=== PATIENT | female | born 1945 | race African-American/Black ===

== ENCOUNTER → 2019-12-31 | Outpatient (CLI) | payer MEDICARE ==
--- NOTE | 2019-12-31 17:28 | RAD ---
EXAM: PET W CT SKULL TO MIDTHIGH EXAM DATE: 12/31/2019 INDICATION: Breast cancer. Subsequent treatment strategy. RADIOPHARMACEUTICAL: 14.9 mCi of F-18 Fluorodeoxyglucose (FDG) I.V. via the left antecubital fossa. TECHNIQUE: Patient weight: 210 pounds. Following at least four-hour fasting, the patient's blood glucose was 87 mg/dl. Approximately 1 hour after administration of FDG, overlapping emission scanning was performed from the orbital meatal line through the pelvis. A low-dose CT was performed for attenuation correction purposes and anatomic localization. Fused images of PET and CT were reviewed. Any standardized uptake values (SUV) reported are maximum values within a volume region of interest, expressed in gm/ml. COMPARISON: Chest CT with IV contrast of July 29, 2018 FINDINGS: PET: A 7 mm posterior right upper lobe pulmonary nodule (image 84 of 290 on axial series 3) shows FDG uptake to max SUV of 4.12. There is faint right hilar FDG uptake to max SUV of 3.59. A fluid collection in the right breast measuring 4.5 x 4.4 cm and containing a fat fluid level shows no abnormal FDG activity. No abnormal FDG activity in the axillary lymph nodes or the mediastinal or left hilar nodes. CT: In the head and neck, no abnormal masses or lymph nodes are seen. Right breast postlumpectomy and axillary eric sampling surgical changes are present in the chest. Mediastinum shows multiple hypodense nodules in the thyroid gland less than a centimeter in size. Lungs show in addition to the hypermetabolic 7 mm nodule in the posterior right upper lobe also show peripheral and posterior right upper lobe small pulmonary nodule measuring 4 mm abutting the major fissure (axial image 90 of 290 on series 3). Although there is respiratory motion artifact that degrades detail, no developing nodule mass is apparent. There is no pleural effusion. In the abdomen and pelvis, gallbladder surgically absent. Liver is fatty infiltrated and mildly enlarged. There are abdominal aortic calcifications without aneurysmal dilation. The uterus is absent. No adnexal mass. No pelvic free fluid, fluid collection or adenopathy. Bones show no acute or aggressive appearing osseous lesions. IMPRESSION: 1. Stable postsurgical chest findings in the right breast and axilla with a single hypermetabolic 7 mm pulmonary nodule in the posterior right upper lobe, unchanged in size from 2018. Recommend attention on follow-up. 2. In addition, there is mild FDG activity in the right hilum without associated adenopathy on unenhanced CT. This could be inflammatory. 3. Otherwise no findings suspicious for metastatic disease are appreciated. Electronically signed by: Maryellen Lee MD (12/31/2019 5:25 PM) [facility]
== END | disposition home or self-care (01) ==
LOC: PETSC 09:40
PROVIDERS: ATTEND Internal Medicine Pulmonary Disease
DX: C50.919 Malignant neoplasm of unspecified site of unspecified female breast (principal); R91.8 Other nonspecific abnormal finding of lung field; K76.0 Fatty (change of) liver, not elsewhere classified; E04.2 Nontoxic multinodular goiter
CPT/HCPCS: 78815; A9552

== ENCOUNTER 2021-11-13 17:28 | Emergency (ER) | payer MEDICARE ==
[~2021-11-13] VITALS: Ht 170.2 cm; Wt 88.5 kg
[2021-11-13] MEDS ORDERED: ALBUTEROL SULFATE 2.5 MG/3 ML NEBU. NEB ONE (19:45)
[2021-11-13] MEDS ORDERED: methylPREDNISolone SOD SUCC PF 125 MG/2 ML VIAL. IV ONE (19:45)
[2021-11-13] MEDS ORDERED: IPRATRPIUM/ALBUTEROL 0.5/2.5MG 3 ML NEBU. NEB ONE (19:45)
[2021-11-13] MEDS ORDERED: ACETAMINOPHEN 500 MG TABLET PO ONE (19:45)
[2021-11-13 20:13] LABS: BASO # 0.1 x10^3/uL (0.0-0.2); BASO % 1 % (0-3); EOS # 0.2 x10^3/uL (0.0-0.7); EOS % 1 % (0-3); HEMATOCRIT 38.8 % (36.0-47.0); LYMPH # 4.4 x10^3/uL (1.0-4.8); LYMPH % 37 % (24-48); MEAN CORPUSCULAR HEMOGLOBIN 30 pg (25-35); MEAN CORPUSCULAR HGB CONC 33 g/dL (31-37); MEAN CORPUSCULAR VOLUME 89 fL (79-100); MONO # 1.1 x10^3/uL (0.0-1.1); MONO % 9 % (0-9); NEUT # 6.4 x10^3/uL (1.8-7.7); NEUT % 53 % (31-73); PLATELET COUNT 357 x10^3/uL (140-400); RED BLOOD COUNT 4.34 x10^6/uL (3.50-5.40); RED CELL DISTRIBUTION WIDTH 14.8 % (11.5-14.5); WHITE BLOOD COUNT 12.2 x10^3/uL (4.0-11.0)
[2021-11-13 20:39] LABS: CALCIUM 9.1 mg/dL (8.5-10.1); CREATININE 0.6 mg/dL (0.6-1.0); GFR 118.6
[2021-11-13 20:40] LABS: INFLUENZA A PATIENT NEGATIVE (NEGATIVE)
[2021-11-13 20:41] LABS: INFLUENZA B PATIENT POSITIVE (NEGATIVE)
[2021-11-13 20:45] LABS: ALBUMIN 3.1 g/dL (3.4-5.0); ALBUMIN/GLOBULIN RATIO 0.8 (1.0-1.7); TOTAL BILIRUBIN 0.3 mg/dL (0.2-1.0); TOTAL PROTEIN 7.2 g/dL (6.4-8.2)
[2021-11-13] MEDS ORDERED: IV NORMAL SALINE 1000ML BAG 1,000 ML IV ONE (21:30)
[2021-11-13] MEDS ORDERED: OSELTAMIVIR 75 MG CAPSULE PO ONE (21:30)
--- NOTE | 2021-11-13 21:47 | RAD ---
INDICATION: Reason: COVID-type symptoms / Spl. Instructions: / History: COMPARISON: March 31, 2018 FINDINGS: Single view of chest obtained. Cardiomediastinal silhouette is enlarged with calcific atherosclerosis. Disorganized pulmonary markings bilaterally. Mild patchy opacities at right greater than left lung base IMPRESSION: * Patchy opacities at right greater than left lung base which could be secondary to atelectasis or i nfiltrate. Follow-up could be obtained to ensure that this appropriately decreases to exclude a persi stent nodule in the area. Electronically signed by: Tereso Coyle MD (11/13/2021 9:45 PM) [id number]
[2021-11-13 22:34] VITALS: BP 163/71
[2021-11-13] MEDS ORDERED: OSEL75CA PO (22:53)
[2021-11-13] MEDS ORDERED: VENTOLIN HFA18 GM INH (22:53)
[2021-11-13] MEDS ORDERED: PRED50TA PO (22:53)
--- NOTE | 2021-11-13 22:53 | PHYS DOC ---
Past Medical History Past Surgical History: No Surgical History Smoking Status: Current Every Day Smoker Alcohol Use: None Adult General Chief Complaint Chief Complaint: FLU SYMPTOM HPI HPI The patient is a 75-year-old female with a history of hypertension, [id number]-nleocaacx diabetes, COPD not on home oxygen. She is not Covid vaccinated. She presents for evaluation of 2 to 3 days of shortness of breath in association with nasal congestion, rhinorrhea, dry cough, and body aches. No associated fevers, vomiting, decreased oral intake, chest pain of any kind, abdominal pain of any kind, flank pain, midline back pain, dysuria, hematuria, polyuria or oliguria, changes in bowel habits, pain or swelling to arms or legs. Patient is alert and pleasantly and appropriately interactive and in no acute distress with appropriate vital signs including oxygenation upon initial evaluation here in the emergency department. She has been taking Tylenol without complete relief of symptoms. She is audibly wheezing on initial auscultation. Review of Systems Review of Systems A 12 point review of systems was completed and was negative except where noted in HPI above. Current Medications Current Medications Current Medications Medications (Trade) Dose Ordered Sig/Ace Start Time Stop Time Status Last Admin Dose Admin Acetaminophen (Tylenol) 1,000 mg 1X ONCE 11/13/21 19:45 11/13/21 19:53 DC 11/13/21 20:06 1,000 MG Albuterol Sulfate (Ventolin Neb Soln) 2.5 mg 1X ONCE 11/13/21 19:45 11/13/21 19:53 DC 11/13/21 20:34 2.5 MG Albuterol/ Ipratropium (Duoneb) 3 ml 1X ONCE 11/13/21 19:45 11/13/21 19:53 DC 11/13/21 20:34 3 ML Methylprednisolone Sodium Succinate (SOLU-Medrol 125MG VIAL) 125 mg 1X ONCE 11/13/21 19:45 11/13/21 19:53 DC 11/13/21 20:08 125 MG Oseltamivir Phosphate (Tamiflu) 75 mg 1X ONCE 11/13/21 21:30 11/13/21 21:31 DC 11/13/21 21:34 75 MG Sodium Chloride 1,000 ml @ 1,000 mls/hr 1X ONCE 11/13/21 21:30 11/13/21 22:29 DC 11/13/21 21:28 1,000 MLS/HR Allergies Allergies Allergies Coded Allergies Type Severity Reaction Last Updated Verified No Known Drug Allergies 11/13/21 No Physical Exam Physical Exam 75-year-old female appearing nontoxic and in no acute distress. Head is normocephalic and atraumatic. Neck is supple and nontender. No JVD. Oropharynx is moist. Lungs with wheezes to all hassan but good air movement bilaterally. No crackles or other adventitious sounds. No tachypnea. Speaking comfortably in full sentences. There is a normal S1 and S2 without rubs or gallops and capillary refill is appropriate, less than 2 seconds globally. Abdo men is soft, nontender nondistended. Skin is warm and dry without cyanosis, clubbing or edema. Psychiatrically, the patient demonstrates appropriate mood and affect and is alert. Evaluation of the extremities reveals BUEs and BLEs neurovascularly intact distally with strength out of 5, sensation intact light touch in all nerve distributions, radial, DP and PT pulses 2+ equal bilaterally, capillary refill less than 2 seconds, hands and feet warm and well-perfused. No dependent peripheral edema distally. No calf tenderness or swelling bilaterally. Homans test is negative bilaterally. Current Patient Data Vital Signs Vital Signs Date Time Temp Pulse Resp B/P (MAP) Pulse Ox O2 Delivery O2 Flow Rate FiO2 11/13/21 22:34 98.0 97 18 163/71 (101) 94 Room Air 98.0 Lab Values Laboratory Tests Test 11/13/21 19:55 11/13/21 20:01 White Blood Count 12.2 x10^3/uL (4.0-11.0) H Red Blood Count 4.34 x10^6/uL (3.50-5.40) Hemoglobin 13.0 g/dL (12.0-15.5) Hematocrit 38.8 % (36.0-47.0) Mean Corpuscular Volume 89 fL (79-100) Mean Corpuscular Hemoglobin 30 pg (25-35) Mean Corpuscular Hemoglobin Concent 33 g/dL (31-37) Red Cell Distribution Width 14.8 % (11.5-14.5) H Platelet Count 357 x10^3/uL (140-400) Neutrophils (%) (Auto) 53 % (31-73) Lymphocytes (%) (Auto) 37 % (24-48) Monocytes (%) (Auto) 9 % (0-9) Eosinophils (%) (Auto) 1 % (0-3) Basophils (%) (Auto) 1 % (0-3) Neutrophils # (Auto) 6.4 x10^3/uL (1.8-7.7) Lymphocytes # (Auto) 4.4 x10^3/uL (1.0-4.8) Monocytes # (Auto) 1.1 x10^3/uL (0.0-1.1) Eosinophils # (Auto) 0.2 x10^3/uL (0.0-0.7) Basophils # (Auto) 0.1 x10^3/uL (0.0-0.2) Sodium Level 143 mmol/L (136-145) Potassium Level 4.0 mmol/L (3.5-5.1) Chloride Level 105 mmol/L (98-107) Carbon Dioxide Level 30 mmol/L (21-32) Anion Gap 8 (6-14) Blood Urea Nitrogen 6 mg/dL (7-20) L Creatinine 0.6 mg/dL (0.6-1.0) Estimated GFR (Cockcroft-Gault) 118.6 BUN/Creatinine Ratio 10 (6-20) Glucose Level 84 mg/dL (70-99) Calcium Level 9.1 mg/dL (8.5-10.1) Total Bilirubin 0.3 mg/dL (0.2-1.0) Aspartate Amino Transferase (AST) 10 U/L (15-37) L Alanine Aminotransferase (ALT) 12 U/L (14-59) L Alkaline Phosphatase 104 U/L (46-116) Troponin I High Sensitivity 9 ng/L (4-50) KP-Dxk-B-Type Natriuretic Peptide 161 pg/mL (0-124) H Total Protein 7.2 g/dL (6.4-8.2) Albumin 3.1 g/dL (3.4-5.0) L Albumin/Globulin Ratio 0.8 (1.0-1.7) L Influenza Type A Antigen Negative (NEGATIVE) Influenza Type B Antigen Positive (NEGATIVE) SARS-CoV-2 Antigen (Rapid) Negative (NEGATIVE) Laboratory Tests 11/13/21 19:55 Laboratory Tests 11/13/21 19:55 EKG EKG Sinus rhythm, rate 83, no acute ST elevation or depression, VT 178, QRS 100, QTc 429, EP interpretation. Nonischemic tracing, intervals appropriate. Radiology/Procedures Radiology/Procedures INDICATION: Reason: COVID-type symptoms / Spl. Instructions: / History: COMPARISON: March 31, 2018 FINDINGS: Single view of chest obtained. Cardiomediastinal silhouette is enlarged with calcific atherosclerosis. Disorganized pulmonary markings bilaterally. Mild patchy opacities at right greater than left lung base IMPRESSION: * Patchy opacities at right greater than left lung base which could be secondary to atelectasis or infiltrate. Follow-up could be obtained to ensure that this appropriately decreases to exclude a persistent nodule in the area. Electronically signed by: Kael Ellis MD (11/13/2021 9:45 PM) DESKTOP- [id number] DICTATED and SIGNED BY: KAEL ELLIS MD DATE: 11/13/21 [id number] 0 Course & Med Decision Making Course & Med Decision Making Labs and imaging largely nonacute aside from evidence of influenza B positivity on serology testing. Covid testing is negative. Patient feels much, much better after breathing treatments and steroids and some IV fluids here in the emergency department. She feels comfortable going home. She is ambulatory about the emergency department with a narrow, steady gait and a normal oxygen saturation. In view of reassuring work-up and clinical improvement will discharge home with a steroid burst, an inhaler and Tamiflu. Patient is to rest and hydrate and to follow-up closely with her primary doctor in the next 1 to 2 days. She understands that if she feels worse instead of better or develops other new symptoms of concern that she will need to return to the emergency department immediately for reevaluation. All questions were answered Dragon Disclaimer Dragon Disclaimer This electronic medical record was generated, in whole or in part, using a voice recognition dictation system. Departure Departure Impression: Primary Impression: Influenza B Additional Impression: COPD with exacerbation Disposition: 01 HOME / SELF CARE / HOMELESS Condition: IMPROVED Referrals: JARET PIEDRA MD (PCP) Additional Instructions: Follow-up very closely with your primary care doctor in the office in the next 1 to 2 days for a reevaluation of your symptoms and a discussion of next best steps in care. Rest and hydrate and you may take a 500 mg extra strength Tylenol pill every 6 hours as needed for discomfort and/or fever. Take a prednisone steroid pill daily to improve your breathing and use your albuterol inhaler every 4 hours (2 puffs) for cough and/or shortness of breath. Take the Tamiflu daily as prescribed to treat influenza and shorten the duration of symptoms. Return to the emergency department right away for worsening symptoms of any kind or with any other new symptoms of concern. Scripts Albuterol Sulfate (VENTOLIN HFA INHALER) 18 Gm Hfa.aer.ad 2 PUFF INH Q4HRS for SOA/wheezing, #1 INHALER 0 Refills Prov: DIRK MOON MD 11/13/21 Prednisone (PREDNISONE) 50 Mg Tablet 1 TAB PO DAILY, #5 TAB Prov: DIRK MOON MD 11/13/21 Oseltamivir Phosphate (TAMIFLU) 75 Mg Capsule 1 CAP PO DAILY for 5 Days, #5 CAP Prov: DIRK MOON MD 11/13/21 Problem Qualifiers DIRK MOON MD Nov 13, 2021 22:53
--- NOTE | 2021-11-14 06:10 | EKG ---
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
--- NOTE | 2021-11-14 16:46 | NUR ---
IP: Attempted to contact pt concerning covid results. No answer, no voicemail box.
--- NOTE | 2021-11-15 09:31 | NUR ---
Informed patient of negative test results.
== END 2021-11-13 23:12 | disposition home or self-care (01) ==
LOC: ER 17:28
DX: J44.1 Chronic obstructive pulmonary disease with (acute) exacerbation (principal); J10.1 Influenza due to other identified influenza virus with other respiratory manifestations; Z20.822 Contact with and (suspected) exposure to COVID-19; F17.200 Nicotine dependence, unspecified, uncomplicated; I10 Essential (primary) hypertension
CPT/HCPCS: 36415; 71045; 80053; 83880; 84484; 85025; 87426; 87804; 93005; 94640; 96361; 96374; 99285; J2930; J7030; J7613; U0003; U0005